=== PATIENT | female | born 1990 | race Caucasian/White ===

== ENCOUNTER → 2023-05-10 07:49 | Outpatient (REF) | payer OTHER, SELFPAY | LOC: PNTC 07:49 | PROVIDERS: ATTENDING PHYSICIAN Obstetrics & Gynecology | DX: O30.049 Twin pregnancy, dichorionic/diamniotic, unspecified trimester (principal) | CPT/HCPCS: 76805; 76810; 93976 ==

== ENCOUNTER → 2023-06-09 16:02 | Outpatient (REF) | payer OTHER, SELFPAY | LOC: PNTC 16:02 | PROVIDERS: ATTENDING PHYSICIAN Obstetrics & Gynecology | DX: O30.049 Twin pregnancy, dichorionic/diamniotic, unspecified trimester (principal) | CPT/HCPCS: 76811; 76812 ==

== ENCOUNTER → 2023-07-05 10:00 | Outpatient (REF) | payer OTHER, SELFPAY | LOC: PNTC 10:00 | PROVIDERS: ATTENDING PHYSICIAN Obstetrics & Gynecology | DX: O30.049 Twin pregnancy, dichorionic/diamniotic, unspecified trimester (principal) | CPT/HCPCS: 76816 ==

== ENCOUNTER → 2023-08-02 13:34 | Outpatient (REF) | payer OTHER, SELFPAY | LOC: PNTC 13:34 | PROVIDERS: ATTENDING PHYSICIAN Obstetrics & Gynecology | DX: O30.049 Twin pregnancy, dichorionic/diamniotic, unspecified trimester (principal) | CPT/HCPCS: 76816 ==

== ENCOUNTER → 2023-08-30 09:49 | Outpatient (REF) | payer OTHER, SELFPAY | LOC: PNTC 09:49 | PROVIDERS: ATTENDING PHYSICIAN Obstetrics & Gynecology | DX: O30.039 Twin pregnancy, monochorionic/diamniotic, unspecified trimester (principal); O30.009 Twin pregnancy, unspecified number of placenta and unspecified number of amniotic sacs, unspecified trimester | CPT/HCPCS: 59025; 76816 ==

== ENCOUNTER → 2023-09-06 09:57 | Outpatient (REF) | payer OTHER, SELFPAY | LOC: PNTC 09:57 | PROVIDERS: ATTENDING PHYSICIAN Obstetrics & Gynecology | DX: O30.049 Twin pregnancy, dichorionic/diamniotic, unspecified trimester (principal) | CPT/HCPCS: 59025; 76815 ==

== ENCOUNTER → 2023-09-13 09:42 | Outpatient (REF) | payer OTHER, SELFPAY | LOC: PNTC 09:42 | PROVIDERS: ATTENDING PHYSICIAN Obstetrics & Gynecology | DX: O30.049 Twin pregnancy, dichorionic/diamniotic, unspecified trimester (principal) | CPT/HCPCS: 59025; 76815 ==

== ENCOUNTER → 2023-09-20 09:41 | Outpatient (REF) | payer OTHER, SELFPAY | LOC: PNTC 09:41 | PROVIDERS: ATTENDING PHYSICIAN Obstetrics & Gynecology | DX: O30.049 Twin pregnancy, dichorionic/diamniotic, unspecified trimester (principal) | CPT/HCPCS: 59025; 76815 ==

== ENCOUNTER → 2023-09-27 09:53 | Outpatient (REF) | payer OTHER, SELFPAY | LOC: PNTC 09:53 | PROVIDERS: ATTENDING PHYSICIAN Obstetrics & Gynecology | DX: O30.049 Twin pregnancy, dichorionic/diamniotic, unspecified trimester (principal) | CPT/HCPCS: 59025; 76816 ==

== ENCOUNTER → 2023-10-04 09:47 | Outpatient (REF) | payer OTHER, SELFPAY | LOC: PNTC 09:47 | PROVIDERS: ATTENDING PHYSICIAN Obstetrics & Gynecology | DX: O30.049 Twin pregnancy, dichorionic/diamniotic, unspecified trimester (principal) | CPT/HCPCS: 36415; 59025; 76815 ==

== ENCOUNTER 2023-10-04 21:58 | Inpatient (IN) | payer OTHER, SELFPAY ==
[2023-10-04 22:28] VITALS: BMI 36.7
[2023-10-04 22:32] VITALS: BP 115/54
[2023-10-04] MEDS: LR 1000 IV (23:06)
[2023-10-04 23:26] LABS: % Basophils 0.6 % (0-2); % Eosinophils 1.5 % (0-6); % Immature Granulocytes 0.5 % (0-0.5); % Lymphocytes 24.2 % (20.5-51.1); % Monocytes 7.9 % (1.7-9.3); % Neutrophils 65.3 % (42.2-75.2); Absolute Basophils 0.1 10^3/uL (0-0.2); Absolute Eosinophils 0.1 10^3/uL (0-0.7); Absolute Monocytes 0.6 10^3/uL (0.1-0.6); Absolute Neutrophils 5.3 10^3/uL (1.4-6.5); Hematocrit 30.6 % (37.0-47.0); Mean Corp Hgb Conc. 35.9 g/dL (33.0-37.0); Mean Corpuscular Hgb 31.2 pg (27.0-31.0); Mean Corpuscular Volume 86.7 fL (81.0-99.0); Mean Platelet Volume 11.9 fL (7.4-10.4); Nucleated Red Blood Cells % 0 %; Platelet Count 215 10^3/uL (130-400); Red Blood Cell Count 3.53 10^6/uL (4.20-5.40); Red Cell Dist. Width 13.8 % (11.5-14.5); White Blood Cell Count 8.2 10^3/uL (4.8-10.8)
[2023-10-04] MEDS: PENICILLIN 110 UNITS IV (23:28)
[2023-10-05] MEDS: LR 1000 IV (00:16)
[2023-10-05] MEDS: SUBLIMAZE 100 MCG EPIDURAL (00:29)
[2023-10-05] MEDS: FENTANYL/BUPIVACAINE 100 EPIDURAL (00:29)
[2023-10-05] MEDS: PENICILLIN 55 UNITS IV (02:57)
--- NOTE | 2023-10-05 03:35 | DOWNTIME ---
There was a [employer] Downtime on 10/05/2023 from 0100 to 10/05/2023 at 0255. Downtime documentation of patient's care, including medication administrations, has been reconciled in the electronic record per guidelines. Refer to the
patient's paper chart under the miscellaneous tab to see printed paper medication records and downtime forms.
[2023-10-05 03:42] LABS: Cord ABG Comment CORD BLOOD
[2023-10-05] MEDS: PITOCIN 30 UNITS/NSS 500 ML IV (03:42)
[2023-10-05 03:43] LABS: B.E. Cord ABG -3.7 mMOL/L; HCO3 Cord ABG 23.1 mmol/L; O2 Saturation % Cord ABG 60.3 %; PCO2 Cord ABG 47 mmHg; PO2 Cord ABG 29 mmHg
[2023-10-05 03:48] LABS: B.E. Cord ABG -1.9 mMOL/L; HCO3 Cord ABG 26.2 mmol/L; O2 Saturation % Cord ABG 28.6 %; PCO2 Cord ABG 57 mmHg; PO2 Cord ABG 14 mmHg; pH Cord ABG 7.27
[2023-10-05] MEDS: SENOKOT-S 1 TABLET PO (07:44)
[2023-10-05] MEDS: TYLENOL 650 MG PO ×3 (07:44→23:36)
[2023-10-05] MEDS: FEOSOL 325 MG PO (07:44)
[2023-10-05] MEDS: PRENATAL PLUS 1 TABLET PO (07:44)
[2023-10-05] MEDS: MOTRIN 600 MG PO ×3 (07:45→23:35)
[2023-10-05 09:18] LABS: Hemoglobin 9.4 g/dL (12.0-16.0); Mean Corp Hgb Conc. 34.8 g/dL (33.0-37.0); Mean Corpuscular Hgb 30.6 pg (27.0-31.0); Mean Corpuscular Volume 87.9 fL (81.0-99.0); Mean Platelet Volume 12.1 fL (7.4-10.4); Platelet Count 194 10^3/uL (130-400); Red Blood Cell Count 3.07 10^6/uL (4.20-5.40); Red Cell Dist. Width 13.8 % (11.5-14.5); White Blood Cell Count 12.4 10^3/uL (4.8-10.8)
[2023-10-06] MEDS: TYLENOL 650 MG PO ×3 (04:52→22:04)
[2023-10-06 05:55] LABS: Hematocrit 25.2 % (37.0-47.0); Hemoglobin 8.7 g/dL (12.0-16.0)
[2023-10-06] MEDS: FEOSOL 325 MG PO (08:48)
[2023-10-06] MEDS: PRENATAL PLUS 1 TABLET PO (08:48)
[2023-10-06] MEDS: SENOKOT-S 1 TABLET PO (08:54)
[2023-10-06 12:55] LABS: Syphilis/T. pallidum Ab Reflex Negative (Negative)
[2023-10-06] MEDS: MOTRIN 600 MG PO ×2 (16:04→22:03)
[2023-10-07] MEDS: MOTRIN 600 MG PO ×2 (05:08→10:13)
[2023-10-07] MEDS: TYLENOL 650 MG PO ×2 (05:09→10:13)
[2023-10-07] MEDS: SENOKOT-S 1 TABLET PO (09:12)
[2023-10-07] MEDS: PRENATAL PLUS 1 TABLET PO (09:12)
[2023-10-07] MEDS: FEOSOL 325 MG PO (09:12)
== END 2023-10-07 13:21 | disposition home or self-care (01) | DRG 807 ==
LOC: LDRP 21:58
PROVIDERS: Obstetrics & Gynecology; ADMITTING PHYSICIAN Obstetrics & Gynecology
PROC: 0UQMXZZ Repair Vulva, External Approach (ICD-10-PCS; 2023-10-05)
PROC: 6A550ZT Pheresis of Cord Blood Stem Cells, Single (ICD-10-PCS; 2023-10-05)
PROC: 10E0XZZ Delivery of Products of Conception, External Approach (ICD-10-PCS; 2023-10-05)
PROC: 10907ZC Drainage of Amniotic Fluid, Therapeutic from Products of Conception, Via Natural or Artificial Opening (ICD-10-PCS; 2023-10-05)
DX: O42.02 Full-term premature rupture of membranes, onset of labor within 24 hours of rupture (principal); Z37.2 Twins, both liveborn; Z3A.37 37 weeks gestation of pregnancy; O99.344 Other mental disorders complicating childbirth; F41.9 Anxiety disorder, unspecified; F32.A Depression, unspecified; O99.824 Streptococcus B carrier state complicating childbirth; O99.214 Obesity complicating childbirth; O69.81X1 Labor and delivery complicated by cord around neck, without compression, fetus 1; O30.043 Twin pregnancy, dichorionic/diamniotic, third trimester; O69.1XX2 Labor and delivery complicated by cord around neck, with compression, fetus 2; O76 Abnormality in fetal heart rate and rhythm complicating labor and delivery; O70.0 First degree perineal laceration during delivery; O34.211 Maternal care for low transverse scar from previous cesarean delivery; O90.81 Anemia of the puerperium; D64.9 Anemia, unspecified
CPT/HCPCS: 88307; 82803; 85014; 85018; 85025; 85027; 86780; 86850; 86900; 86901